=== PATIENT | female | born 1965 | race Caucasian/White ===

== ENCOUNTER 2021-08-29 15:57 | Emergency (ER) | payer OTHER ==
[~2021-08-29 15:57] MED LIST: LEXAPRO20 MG PO; LIPITOR20 M1 PO; LIPITOR20 MG PO; LISINOPRIL-HCT1 EAC1 PO; NORVASC 5MG TABL5 MG PO; NORVASC5 MG PO
[2021-08-29] MEDS ORDERED: AUGMENTIN 875-1 EACH PO (20:45)
== END 2021-08-29 20:52 | disposition home or self-care (01) ==
LOC: FER 15:57
DX: S02.40CA Maxillary fracture, right side, initial encounter for closed fracture (principal); S02.2XXA Fracture of nasal bones, initial encounter for closed fracture; S01.511A Laceration without foreign body of lip, initial encounter; I10 Essential (primary) hypertension; Z23 Encounter for immunization; W19.XXXA Unspecified fall, initial encounter; Y92.009 Unspecified place in unspecified non-institutional (private) residence as the place of occurrence of the external cause
CPT/HCPCS: 70450; 70486; 72125; 90471